=== PATIENT | male | born 1950 | race Caucasian/White ===

== ENCOUNTER → 2017-12-12 | Day surgery (SDC) | payer MEDICARE ==
[~2017-12-12] MED LIST: BUPIVACAINE HCL 0.5 % INJ/PF 30 ML SDV ONE
--- NOTE | 2017-12-12 08:55 | Operative Report ---
PROCEDURE: KNEE RADIOFREQUENCY left under ultrasound guidance Preoperative Diagnosis: Left knee osteoarthritis Postoperative Diagnosis: Left knee osteoarthritis 1. Superolateral genicular branch from the vastus lateralis 2. Superomedial genicular branch from the vastus medialis 3. Inferomedial genicular branch from the saphenous nerve 4. Medial retinacular branch from the vastus intermedius DATE OF PROCEDURE: December 12, 2017 ANESTHESIA: Local anesthesia COMPLICATIONS: None reported PROCEDURE IN DETAIL: Hx/PE/meds/allergies/applicable labs reviewed. No changes and no contraindications were found. Full description of the procedure was provided including benefits as well as possible complications including transient increased pain, stomach irritation, mood alteration, transient weakness or parasthesias as well as more serious nerve injury, bleeding, infection or allergic reaction. Informed consent was obtained and documented. The patient was brought to the procedure room and placed on the exam table in a comfortable supine position. The place for needle placement was obtained by manual palpation with ultrasound confirmation. The sterile field was prepared by chloroprep and sterile drapes. Local anesthesia superficial and deep was provided by local infiltration of 2% lidocaine. A 17g 50 mm radiofrequency introducer needle with a 4 mm active tip was placed overlying the left knee joint and using ultrasound guidance the needle was advanced to a bony endpoint on the superiolateral portion of the femoral condyle of the left knee. A second needle was advanced to a bony endpoint on the superiomedial portion of the femoral condyle. A third needle was then placed over the inferiomedial portion of the tibial condyle until a bony endpoint was met. 4th needle placed 3mm above the patella. Attempted aspiration yielded no blood. Transverse ultrasound views showed all the needles at 50% depth of the femur and tibia. Motor stimulation was tested at 2.0 volts with no leg movement. Images were saved in AP and lateral. A mixture consisting of 0.5% bupivacaine was slowly injected. Then a radiofrequency ablation of each of the geniculate nerves were done at 80 degrees Celsius for 2 minutes and 30 seconds each. The needles were withdrawn. The patient tolerated the procedure well. After observation the patient was discharged with instructions and follow up. They were also provided contact information to call regarding any concerning symptoms or questions. IMPRESSION: 1. Successful geniculate left knee radiofrequency ablation was performed. 2. The patient was given prescription of home medicines. 3. RTC in 1-2 week(s).
== END ==
LOC: RAD 08:35
PROVIDERS: ATTEND Family Medicine
PROC: 3E0T3TZ Introduction of Destructive Agent into Peripheral Nerves and Plexi, Percutaneous Approach (ICD-10-PCS; principal; 2017-12-12)
DX: M17.12 Unilateral primary osteoarthritis, left knee (principal)
CPT/HCPCS: 64640

== ENCOUNTER 2018-07-30 13:03 | Emergency (ER) | payer MEDICARE ==
[2018-07-30 13:10] VITALS: BP 145/88
[2018-07-30] MEDS ORDERED: ONDANSETRON 4 MG TAB.RAPDIS PO ONE (14:02)
[2018-07-30] MEDS ORDERED: NORMAL SALINE 1000 ML 1,000 ML IV ONE (14:02)
[2018-07-30 14:39] LABS: ABSOLUTE EOSINOPHILS # (AUTO) 0.1 10^3/uL (0.0-0.6); ABSOLUTE LYMPHOCYTES (AUTO) 0.9 10^3/uL (0.5-4.7); ABSOLUTE MONOCYTES (AUTO) 0.6 10^3/uL (0.1-1.4); ABSOLUTE NEUT (AUTO) 2.3 10^3/uL (1.7-8.2); BASOPHILS % (AUTO) 0.5 % (0-2); EOSINOPHILS % (AUTO) 1.9 % (0-6); HEMATOCRIT 44.1 % (37.9-51.0); LYMPHOCYTES % (AUTO) 23.3 % (13-45); MEAN CORPUSCULAR VOLUME 89 fl (80-97); MONOCYTES % (AUTO) 15.9 % (3-13); PLATELET COUNT 331 10^3/uL (150-450); RED BLOOD COUNT 4.98 10^6/uL (4.35-5.55); RED CELL DISTRIBUTION WIDTH 13.6 % (11.5-14.0); SEGMENTED NEUTROPHILS % (AUTO) 58.4 % (42-78); TOTAL CELLS COUNTED % (AUTO) 100 %; WHITE BLOOD COUNT 3.9 10^3/uL (4.0-10.5)
--- NOTE | 2018-07-30 14:52 | RADIOLOGY REPORT (SQ) ---
EXAM DESCRIPTION: KUB/ABDOMEN (SINGLE VIEW) COMPLETED DATE/TIME: 07/30/2018 2:37 pm REASON FOR STUDY: Abdominal pain COMPARISON: None. NUMBER OF VIEWS: One view. TECHNIQUE: Supine radiographic image of the abdomen acquired. LIMITATIONS: None. FINDINGS: BOWEL GAS PATTERN: Normal bowel gas pattern. No dilated loops. CALCIFICATIONS: No suspicious calcifications. SOFT TISSUES: No gross mass or suggestion of organomegaly. HARDWARE: None in the abdomen. BONES: Scoliosis. OTHER: No other significant finding. IMPRESSION: NO RADIOGRAPHIC EVIDENCE FOR ACUTE ABDOMINAL DISEASE. TECHNICAL DOCUMENTATION: JOB ID: [id number] [employer]- All Rights Reserved Reading location - IP/workstation name: [email or web address]
[2018-07-30 15:06] LABS: ALANINE AMINOTRANSFERASE 16 U/L (21-72); ALBUMIN 4.2 g/dL (3.5-5.0); ALKALINE PHOSPHATASE 77 U/L (38-126); ANION GAP 14 (5-19); ASPARTATE AMINO TRANSFERASE 26 U/L (17-59); BILIRUBIN,DIRECT 0.4 mg/dL (0.0-0.4); BILIRUBIN,TOTAL 0.6 mg/dL (0.2-1.3); BLOOD UREA NITROGEN 15 mg/dL (7-20); CALCIUM 9.7 mg/dL (8.4-10.2); CARBON DIOXIDE 32 mmol/L (22-30); CHLORIDE 92 mmol/L (98-107); GLUCOSE 102 mg/dL (75-110); SODIUM 137.9 mmol/L (137-145); TOTAL PROTEIN 8.5 g/dL (6.3-8.2)
--- NOTE | 2018-07-30 15:13 | ER Document Report ---
ED General - General Chief Complaint: Numbness Stated Complaint: NAUSEA,NUMBNESS TO BODY Time Seen by Provider: 07/30/18 13:42 Notes: Chief complaint: Paresthesia History of complain:( obtained from----patient) 67 years old male with a history of complete colectomy and J-pouch, not taking B12 vitamin for a long time recently started taking by mouth. Presents today with numbness tingling sensation over throughout the whole body particularly the tip of the fingers and toes and tip of the nose and mouth. Which was very annoying therefore came to the ED. No pain. Denies any fever chills or other constitutional symptoms. Had some nausea and abdominal discomfort no diarrhea or constipation. Onset: As above Duration: Gradual long-standing Severity: Mild to moderate Quality: Tingling sensation Context: Possible B12 deficiency Exacerbating factor and relieving factors: REVIEW OF SYSTEMS: CONSTITUTIONAL : Denies fever, chills, or sweats. Denies recent illness. EENT: Denies eye, ear, throat, or mouth pain or symptoms. Denies nasal or sinus congestion or discharge. Denies throat, tongue, or mouth swelling or difficulty swallowing. CARDIOVASCULAR: Denies chest pain. Denies palpitations or racing or irregular heart beat. Denies ankle edema. RESPIRATORY: Denies cough, cold, or chest congestion. Denies shortness of breath, difficulty breathing, or wheezing. GASTROINTESTINAL: Denies distention. Denies nausea, vomiting, or diarrhea. Denies blood in vomitus, stools, or per rectum. Denies black, tarry stools. Denies constipation. GENITOURINARY: Denies difficulty urinating, painful urination, burning, frequency, blood in urine, or discharge. FEMALE GENITOURINARY: Denies vaginal bleeding, heavy or abnormal periods, irregular periods. Denies vaginal discharge or odor. MUSCULOSKELETAL: Denies back or neck pain or stiffness. Denies joint pain or swelling. SKIN: Denies rash, lesions or sores. HEMATOLOGIC : Denies easy bruising or bleeding. LYMPHATIC: Denies swollen, enlarged glands. NEUROLOGICAL: Denies confusion or altered mental status. Denies passing out or loss of consciousness. Denies dizziness or lightheadedness. Denies headache. Denies weakness or paralysis or loss of use of either side. Denies problems with gait or speech. Denies sensory loss, numbness, or tingling. Denies seizures. PSYCHIATRIC: Denies anxiety or stress. Denies depression, suicidal ideation, or homicidal ideation. ALL OTHER SYSTEMS REVIEWED AND NEGATIVE. PHYSICAL EXAMINATION: GENERAL: Well-appearing, well-nourished and in no acute distress. HEAD: Atraumatic, normocephalic. EYES: Pupils equal round and reactive to light, extraocular movements intact, conjunctiva are normal. ENT: Nares patent, oropharynx clear without exudates. Moist mucous membranes. NECK: Normal range of motion, supple without lymphadenopathy LUNGS: Breath sounds clear to auscultation bilaterally and equal. No wheezes rales or rhonchi. HEART: Regular rate and rhythm without murmurs ABDOMEN: Soft, nontender, nondistended abdomen. No guarding, no rebound. No masses appreciated. Examination of genitals-deferred Musculoskeletal: Normal range of motion, no pitting or edema. No cyanosis. NEUROLOGICAL: Cranial nerves grossly intact. Normal speech, normal gait. Normal sensory, motor exams PSYCH: Normal mood, normal affect. SKIN: Warm, Dry, normal turgor, no rashes or lesions noted. Dictation was performed using [employer] voice recognition software TRAVEL OUTSIDE OF THE [place] IN LAST 30 DAYS: No - HPI Notes: Dictated - Related Data Allergies/Adverse Reactions: No Known Allergies Allergy (Verified 07/30/18 13:04) Past Medical History - Social History Smoking Status: Never Smoker Frequency of alcohol use: None Drug Abuse: None Family History: None, Reviewed & Not Pertinent Patient has suicidal ideation: No Patient has homicidal ideation: No - Past Medical History Cardiac Medical History: Denies: Hx Congestive Heart Failure, Hx DVT, Hx Hypercholesterolemia, Hx Hypertension, Hx Pulmonary Embolism Pulmonary Medical History: Denies: Hx Asthma, Hx COPD Neurological Medical History: Denies: Hx Seizures Endocrine Medical History: Reports: Hx Hypothyroidism. Denies: Hx Diabetes Mellitus Type 1, Hx Diabetes Mellitus Type 2, Hx Hyperthyroidism Renal/ Medical History: Denies: Hx Peritoneal Dialysis GI Medical History: Reports: Hx Ulcer. Denies: Hx Cirrhosis, Hx Gastroesophageal Reflux Disease, Hx Hepatitis Musculoskeletal Medical History: Reports Hx Arthritis Skin Medical History: Denies Hx Eczema, Denies Hx Psoriasis Psychiatric Medical History: Denies: Hx Depression Infectious Medical History: Denies: Hx Hepatitis Past Surgical History: Reports: Hx Abdominal Surgery - J-pouch cecum removed, Hx Orthopedic Surgery - Right hip arthroplasty. Review of Systems - Review of Systems Notes: Dictated Physical Exam - Vital signs Vitals: Temp Pulse Resp BP Pulse Ox 98.9 F 65 16 145/88 H 98 07/30/18 13:09 07/30/18 13:09 07/30/18 13:09 07/30/18 13:09 07/30/18 13:09 - Notes Notes: Dictated Course - Vital Signs Vital signs: Temp Pulse Resp BP Pulse Ox 98.9 F 65 16 145/88 H 98 07/30/18 13:09 07/30/18 13:09 07/30/18 13:09 07/30/18 13:09 07/30/18 13:09 - Laboratory Result Diagrams: 07/30/18 14:20 07/30/18 14:20 Laboratory results interpreted by me: 07/30/18 07/30/18 14:20 14:20 WBC 3.9 L Monocytes % 15.9 H Chloride 92 L Carbon Dioxide 32 H ALT 16 L Total Protein 8.5 H Discharge - Discharge Clinical Impression: Neuropathy, Paresthesia Condition: Fair Disposition: HOME, SELF-CARE Instructions: Neuropathy ([facility]) Referrals: ARABELLA BUNDY DO [Primary Care Provider] - Follow up as needed
[2018-07-30 16:14] LABS: FOLATE > 20.00 ng/mL (>2.76)
== END 2018-07-30 16:32 | disposition home or self-care (01) ==
LOC: ER 13:03
DX: R20.0 Anesthesia of skin (principal); G62.9 Polyneuropathy, unspecified; E03.9 Hypothyroidism, unspecified; Z93.4 Other artificial openings of gastrointestinal tract status
CPT/HCPCS: 99284; 96360; 96361; 36415; 82607; 82746; 85025; 80053; 74018; A9270; J7030; S0119

== ENCOUNTER 2018-08-13 12:31 | Emergency (ER) | payer MEDICARE ==
[2018-08-13] MEDS ORDERED: NORMAL SALINE 1000 ML 1,000 ML IV ONE (12:46)
--- NOTE | 2018-08-13 12:53 | ER Document Report ---
ED Medical Screen (RME) - General Chief Complaint: Rectal Bleeding Stated Complaint: BLOOD IN STOOL Time Seen by Provider: 08/13/18 12:41 Mode of Arrival: Ambulatory Information source: Patient Notes: Patient complained of blood in stool which started this morning. He denies any chest pain or shortness of breath. Patient has had colectomy from ulcerative colitis. I have greeted and performed a rapid initial assessment of this patient. A comprehensive ED assessment and evaluation of the patient, analysis of test results and completion of the medical decision making process will be conducted by additional ED providers. TRAVEL OUTSIDE OF THE [place] IN LAST 30 DAYS: No - Related Data Allergies/Adverse Reactions: No Known Allergies Allergy (Verified 08/13/18 12:37) Past Medical History - Past Medical History Cardiac Medical History: Denies: Hx Congestive Heart Failure, Hx DVT, Hx Hypercholesterolemia, Hx Hypertension, Hx Pulmonary Embolism Pulmonary Medical History: Denies: Hx Asthma, Hx COPD Neurological Medical History: Denies: Hx Seizures Endocrine Medical History: Reports: Hx Hypothyroidism. Denies: Hx Diabetes Mellitus Type 1, Hx Diabetes Mellitus Type 2, Hx Hyperthyroidism Renal/ Medical History: Denies: Hx Peritoneal Dialysis GI Medical History: Reports: Hx Ulcer. Denies: Hx Cirrhosis, Hx Gastroesophageal Reflux Disease, Hx Hepatitis Musculoskeltal Medical History: Reports Hx Arthritis Skin Medical History: Denies Hx Eczema, Denies Hx Psoriasis Psychiatric Medical History: Denies: Hx Depression Infectious Medical History: Denies: Hx Hepatitis Past Surgical History: Reports: Hx Abdominal Surgery - J-pouch cecum removed, Hx Orthopedic Surgery - Right hip arthroplasty. Physical Exam - Vital signs Vitals: Temp Pulse Resp BP Pulse Ox 98.3 F 114 H 18 120/89 H 96 08/13/18 12:37 08/13/18 12:37 08/13/18 12:37 08/13/18 12:37 08/13/18 12:37 Course - Vital Signs Vital signs: Temp Pulse Resp BP Pulse Ox 98.3 F 114 H 18 120/89 H 96 08/13/18 12:37 08/13/18 12:37 08/13/18 12:37 08/13/18 12:37 08/13/18 12:37 Doctor's Discharge - Discharge Referrals: ARABELLA BUNDY DO [Primary Care Provider] - Follow up as needed
[2018-08-13 13:14] LABS: ABSOLUTE EOSINOPHILS # (AUTO) 0.1 10^3/uL (0.0-0.6); ABSOLUTE LYMPHOCYTES (AUTO) 0.7 10^3/uL (0.5-4.7); ABSOLUTE MONOCYTES (AUTO) 0.9 10^3/uL (0.1-1.4); ABSOLUTE NEUT (AUTO) 4.7 10^3/uL (1.7-8.2); BASOPHILS % (AUTO) 0.2 % (0-2); HEMATOCRIT 46.4 % (37.9-51.0); HEMOGLOBIN 15.5 g/dL (13.5-17.0); LYMPHOCYTES % (AUTO) 10.4 % (13-45); MEAN CORPUSCULAR HEMOGLOBIN 29.8 pg (27.0-33.4); MEAN CORPUSCULAR HGB CONC 33.3 g/dL (32.0-36.0); MEAN CORPUSCULAR VOLUME 89 fl (80-97); MONOCYTES % (AUTO) 14.7 % (3-13); PLATELET COUNT 519 10^3/uL (150-450); RED BLOOD COUNT 5.19 10^6/uL (4.35-5.55); RED CELL DISTRIBUTION WIDTH 13.9 % (11.5-14.0); SEGMENTED NEUTROPHILS % (AUTO) 73.7 % (42-78); TOTAL CELLS COUNTED % (AUTO) 100 %; WHITE BLOOD COUNT 6.3 10^3/uL (4.0-10.5)
[2018-08-13 13:25] LABS: INTERNATIONAL RATION (INR) 0.98; PROTHROMBIN TIME 13.4 SEC (11.4-15.4)
[2018-08-13 13:26] LABS: PARTIAL THROMBOPLASTIN TIME 32.6 SEC (23.5-35.8)
[2018-08-13 13:36] LABS: ALANINE AMINOTRANSFERASE 20 U/L (21-72); ALBUMIN 4.2 g/dL (3.5-5.0); ALKALINE PHOSPHATASE 79 U/L (38-126); ANION GAP 10 (5-19); ASPARTATE AMINO TRANSFERASE 25 U/L (17-59); BILIRUBIN,DIRECT 0.4 mg/dL (0.0-0.4); BILIRUBIN,TOTAL 0.6 mg/dL (0.2-1.3); BLOOD UREA NITROGEN 13 mg/dL (7-20); CALCIUM 10.4 mg/dL (8.4-10.2); CARBON DIOXIDE 38 mmol/L (22-30); CHLORIDE 88 mmol/L (98-107); GLUCOSE 130 mg/dL (75-110); POTASSIUM 5.1 mmol/L (3.6-5.0); SODIUM 135.6 mmol/L (137-145); TOTAL PROTEIN 8.1 g/dL (6.3-8.2)
[2018-08-13] MEDS ORDERED: PANTOPRAZOLE SODIUM 40 MG VIAL IV ONE (15:39)
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
[2018-08-13 18:45] VITALS: BP 118/82
== END 2018-08-13 17:44 | disposition home or self-care (01) ==
LOC: ER 12:31
DX: K62.5 Hemorrhage of anus and rectum (principal)
CPT/HCPCS: 99283; 36415; 85025; 85610; 85730; 80053; C9113; S0164

== ENCOUNTER 2020-04-22 02:19 | Inpatient (IN) | payer MEDICARE ==
[2020-04-22] MEDS ORDERED: NORMAL SALINE 250 ML IV PRN ×2 (02:48)
[2020-04-22] MEDS ORDERED: NORMAL SALINE 1000 ML 1,000 ML IV ONE (02:49)
[2020-04-22] MEDS ORDERED: NORMAL SALINE 500 ML IV ONE (02:53)
--- NOTE | 2020-04-22 02:53 | ER Document Report ---
ED GI/ - General Chief Complaint: Rectal Bleeding Stated Complaint: RECTAL BLEEDING Time Seen by Provider: 04/22/20 02:41 Notes: Patient is a 69-year-old male that comes emergency department for chief complaint of rectal bleeding. He states it started yesterday morning, he states that he had a larger one during the evening when he started become lightheaded and weak. He had 4 total bright bloody stools. He states he has a history of colectomy secondary to ulcerative colitis, he states he has had a GI bleed once before that required transfusion a couple of years ago ([id number]). He is not on blood thinner. He denies any symptoms otherwise including chest pain, abdominal pain, vomiting, fever. TRAVEL OUTSIDE OF THE [place] IN LAST 30 DAYS: No - Related Data Allergies/Adverse Reactions: No Known Allergies Allergy (Verified 08/13/18 12:37) Past Medical History - General Information source: Patient - Social History Smoking Status: Never Smoker Frequency of alcohol use: None Drug Abuse: None Lives with: Family Family History: None, Reviewed & Not Pertinent Patient has homicidal ideation: No - Past Medical History Cardiac Medical History: Denies: Hx Congestive Heart Failure, Hx DVT, Hx Hypercholesterolemia, Hx Hypertension, Hx Pulmonary Embolism Pulmonary Medical History: Denies: Hx Asthma, Hx COPD Neurological Medical History: Denies: Hx Seizures Endocrine Medical History: Reports: Hx Hypothyroidism. Denies: Hx Diabetes Mellitus Type 1, Hx Diabetes Mellitus Type 2, Hx Hyperthyroidism Renal/ Medical History: Denies: Hx Peritoneal Dialysis GI Medical History: Reports: Hx Gastroesophageal Reflux Disease, Hx Ulcerative Colitis. Denies: Hx Cirrhosis, Hx Hepatitis Musculoskeletal Medical History: Reports Hx Arthritis Skin Medical History: Denies Hx Eczema, Denies Hx Psoriasis Psychiatric Medical History: Denies: Hx Depression Infectious Medical History: Denies: Hx Hepatitis Past Surgical History: Reports: Hx Abdominal Surgery - J-pouch, colectomy, Hx Orthopedic Surgery - Right hip arthroplasty. - Immunizations Immunizations up to date: Yes Hx Diphtheria, Pertussis, Tetanus Vaccination: Yes Review of Systems - Review of Systems Constitutional: See HPI EENT: No symptoms reported Cardiovascular: See HPI Respiratory: No symptoms reported Gastrointestinal: See HPI Genitourinary: No symptoms reported Male Genitourinary: No symptoms reported Musculoskeletal: No symptoms reported Skin: No symptoms reported Hematologic/Lymphatic: No symptoms reported Neurological/Psychological: No symptoms reported Physical Exam - Vital signs Vitals: Temp Resp Pulse Ox 98.0 F 23 H 98 04/22/20 02:32 04/22/20 02:32 04/22/20 02:32 - Notes Notes: GENERAL: Alert, interactive, somewhat pale but does not appear to be in distress HEAD: Normocephalic, atraumatic. EYES: Pupils equal, round, and reactive to light. Extraocular movements intact. ENT: Oral mucosa moist, tongue midline. Oropharynx unremarkable. Airway patent. NECK: Full range of motion. Supple. Trachea midline. No lymphadenopathy. LUNGS: Clear to auscultation bilaterally, no wheezes, rales, or rhonchi. No respiratory distress. Non-tender chest wall. HEART: Regular rate and rhythm. No murmur ABDOMEN: No overt tenderness noted on palpation of the abdomen, no rigidity or guarding. Midline abdominal scars noted. Bowel sounds are present. RECTAL: There is small amount of bright red blood in the rectum, there appear to be scars just inside the rectal vault and narrowing of the rectal vault. No severe tenderness on exam however. No other concerning findings noted. Exam performed with Mildred LARRY at bedside. EXTREMITIES: Moves all 4 extremities spontaneously. No edema, normal radial and dorsalis pedis pulses bilaterally. No cyanosis. BACK: no cervical, thoracic, lumbar midline tenderness. No saddle anesthesia, normal distal neurovascular exam. Moves all extremities in full range of motion. NEUROLOGICAL: Alert and oriented x3. Normal speech. Cranial nerves II through XII grossly intact. Strength 5/5 in all extremities. PSYCH: Normal affect, normal mood. SKIN: Pale Course - Re-evaluation Re-evalutation: 04/22/20 02:51 Blood pressure is 91 systolic, patient is pale but alert, patient is no current symptoms while in the bed. Rectal exam does show some bright red blood but he was not hemorrhaging on my exam. Abdomen is soft and benign. Patient is not on blood thinner. Work-up pending, blood transfusion will be ordered, giving IV fluids now because of hypotension. After 500 cc bolus blood pressure again in the 100s systolic. On reevaluation patient with no symptoms except occasional nausea, this was treated. Patient appears improved on reevaluation. Patient has not had any additional bowel movement since earlier this evening. CBC is actually reassuring with hemoglobin of 11 although previous one in 2018 was 15.5. Remaining work-up nonspecific. BUN is not elevated, based on this and overall presentation I do not suspect an upper GI bleed. Patient states he is a patient of Dr. Dillon, gastroenterology. He states that he requires pediatric sized equipment for colonoscopy because of scar tissue. I did call and speak with Dr. 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 He recommends admission, Cipro and Flagyl by the admitting provider, and he can consult on the patient. Patient states understanding and agreement. Discussed with Dr. Ojeda, hospitalist, patient admitted to telemetry full admission. - Vital Signs Vital signs: Temp Pulse Resp BP Pulse Ox 98.0 F 22 H 98/64 L 96 04/22/20 02:32 04/22/20 03:01 04/22/20 03:00 04/22/20 03:01 - Laboratory Result Diagrams: 04/22/20 02:39 04/22/20 02:39 Laboratory results interpreted by me: 04/22/20 04/22/20 04/22/20 02:39 02:39 02:39 RBC 3.87 L Hgb 11.3 L Hct 33.5 L RDW 15.2 H Sodium 132.9 L Chloride 97 L Glucose 167 H Total Protein 6.0 L Albumin 3.1 L Crossmatch See Detail Discharge - Discharge Clinical Impression: Lower GI bleed, Nausea Condition: Stable Disposition: ADMITTED INPATIENT Admitting Provider: Rusty (Hospitalist) Unit Admitted: Telemetry
[2020-04-22 03:05] LABS: ABSOLUTE EOSINOPHILS # (AUTO) 0.2 10^3/uL (0.0-0.6); ABSOLUTE MONOCYTES (AUTO) 1.1 10^3/uL (0.1-1.4); ABSOLUTE NEUT (AUTO) 7.1 10^3/uL (1.7-8.2); BASOPHILS % (AUTO) 0.4 % (0-2); EOSINOPHILS % (AUTO) 1.5 % (0-6); HEMATOCRIT 33.5 % (37.9-51.0); HEMOGLOBIN 11.3 g/dL (13.5-17.0); LYMPHOCYTES % (AUTO) 19.3 % (13-45); MEAN CORPUSCULAR HEMOGLOBIN 29.3 pg (27.0-33.4); MEAN CORPUSCULAR HGB CONC 33.8 g/dL (32.0-36.0); MEAN CORPUSCULAR VOLUME 87 fl (80-97); MONOCYTES % (AUTO) 10.2 % (3-13); PLATELET COUNT 405 10^3/uL (150-450); RED BLOOD COUNT 3.87 10^6/uL (4.35-5.55); RED CELL DISTRIBUTION WIDTH 15.2 % (11.5-14.0); SEGMENTED NEUTROPHILS % (AUTO) 68.6 % (42-78); TOTAL CELLS COUNTED % (AUTO) 100 %; WHITE BLOOD COUNT 10.4 10^3/uL (4.0-10.5)
[2020-04-22] MEDS ORDERED: ONDANSETRON HCL INJ/PF 4 MG/2 ML SDV IV ONE (03:11)
[2020-04-22 03:20] LABS: ALBUMIN 3.1 g/dL (3.5-5.0); ALKALINE PHOSPHATASE 65 U/L (38-126); ANION GAP 6 (5-19); ASPARTATE AMINO TRANSFERASE 18 U/L (17-59); BILIRUBIN,TOTAL 0.4 mg/dL (0.2-1.3); BLOOD UREA NITROGEN 15 mg/dL (7-20); CALCIUM 9.2 mg/dL (8.4-10.2); CARBON DIOXIDE 30 mmol/L (22-30); CHLORIDE 97 mmol/L (98-107); GLUCOSE 167 mg/dL (75-110)
[2020-04-22 03:43] LABS: INTERNATIONAL RATION (INR) 1.02; PROTHROMBIN TIME 13.4 SEC (11.4-15.4)
[2020-04-22 03:44] LABS: PARTIAL THROMBOPLASTIN TIME 32.9 SEC (23.5-35.8)
[2020-04-22] MEDS ORDERED: ACETAMINOPHEN 325 MG TABLET PO PRN (04:36)
[2020-04-22] MEDS ORDERED: MAG HYDROX/AL HYDROX/SIMETH SUSP 30 ML UDCUP PO PRN (04:36)
[2020-04-22] MEDS ORDERED: ONDANSETRON HCL INJ/PF 4 MG/2 ML SDV IV PRN (04:36)
[2020-04-22] MEDS ORDERED: CIPROFLOXACIN 400 MG/D5W RTU 400 MG/200 ML RTUPB IV ONE (05:00)
[2020-04-22] MEDS ORDERED: HEPARIN SOD (PORCINE) 5,000 UNIT/ML 1 ML VIAL SUBCUT SCH (06:00)
[2020-04-22] MEDS: METRONIDAZOLE 500 MG/NS RTU 500 MG/100 ML RTUPB IV SCH ×2 (06:14→12:24)
--- NOTE | 2020-04-22 06:16 | PDOC H&P ---
History of Present Illness Admission Date/PCP: 04/22/20 04:45 CADY MASSEY Patient complains of: Bright red blood per rectum History of Present Illness: GREGORIA POPE is a 69 year old male with a past medical history of hypothyroidism, ulcerative colitis, status post total colectomy complicated by medication noncompliance and recurrence of pouchitis. Patient needs to at least 3 bowel movements of bright red blood. Unable to quantify. In the emergency department is found to have a mildly reduced hemoglobin is referred to the hospitalist for admission. Patient admits remote discontinuation of maintenance medication for ulcerative colitis. He denies additional medication use, heat or cold intolerance, nausea vomiting or diarrhea. He is concerned for a recent 20 pound weight loss. Past Medical History Cardiac Medical History: Denies: Congestive Heart Failure, DVT, Hyperlipidema, Hypertension, Pulmonary Embolism Pulmonary Medical History: Denies: Asthma, Chronic Obstructive Pulmonary Disease (COPD) Neurological Medical History: Denies: Seizures Endocrine Medical History: Reports: Hypothyroidism Denies: Diabetes Mellitus Type 1, Diabetes Mellitus Type 2, Hyperthyroidism GI Medical History: Reports: Gastroesophageal Reflux Disease, Ulcerative Colitis Denies: Cirrhosis, Hepatitis Musculoskeltal Medical History: Reports: Arthritis Skin Medical History: Denies: Eczema, Psoriasis Psychiatric Medical History: Denies: Depression Past Surgical History Past Surgical History: Reports: Orthopedic Surgery - Right hip arthroplasty., Other - Total colectomy Social History Information Source: [facility] Records Lives with: Family Smoking Status: Never Smoker Frequency of Alcohol Use: None Drugs: None - Advance Directive Resuscitation Status: Full Code Family History Family History: None, Hypertension. denies: Malignancy Parental Family History Reviewed: Yes Children Family History Reviewed: Yes Sibling(s) Family History Reviewed.: Yes Medication/Allergy Home Medications: Levothyroxine Sodium [Unithroid] 150 mcg PO DAILY 09/23/16 Minocycline HCl [Minocin] 50 mg PO DAILY 09/23/16 Tramadol HCl [Ultram 50 mg Tablet] 50 mg PO Q6HP PRN 09/23/16 Esomeprazole Magnesium [Nexium] 40 mg PO BID #28 capsule. 09/24/16 Allergies/Adverse Reactions: No Known Allergies Allergy (Verified 08/13/18 12:37) Review of Systems ROS unobtainable: Other - 20 pound weight loss in the last 12 months Constitutional: ABSENT: chills, fever(s), headache(s), weight gain, weight loss Eyes: ABSENT: visual disturbances Ears: ABSENT: hearing changes Cardiovascular: ABSENT: chest pain, dyspnea on exertion, edema, orthropnea, palpitations Respiratory: ABSENT: cough, hemoptysis Gastrointestinal: ABSENT: abdominal pain, constipation, diarrhea, hematemesis, hematochezia, nausea, vomiting Genitourinary: ABSENT: dysuria, hematuria Musculoskeletal: ABSENT: joint swelling Integumentary: ABSENT: rash, wounds Neurological: ABSENT: abnormal gait, abnormal speech, confusion, dizziness, focal weakness, syncope Psychiatric: ABSENT: anxiety, depression, homidical ideation, suicidal ideation Endocrine: ABSENT: cold intolerance, heat intolerance, polydipsia, polyuria Hematologic/Lymphatic: ABSENT: easy bleeding, easy bruising Physical Exam Vital Signs: Temp Pulse Resp BP Pulse Ox 98.0 F 22 H 98/64 L 96 04/22/20 02:32 04/22/20 03:01 04/22/20 03:00 04/22/20 03:01 Intake & Output 04/20/20 04/21/20 04/22/20 11:59 11:59 11:59 Weight 62.9 kg General appearance: PRESENT: no acute distress, cooperative, well-developed, well-nourished Head exam: PRESENT: atraumatic, normocephalic Eye exam: PRESENT: conjunctiva pink, EOMI, PERRLA. ABSENT: scleral icterus Ear exam: PRESENT: normal external ear exam Mouth exam: PRESENT: moist, tongue midline Neck exam: ABSENT: carotid bruit, JVD, lymphadenopathy, thyromegaly Respiratory exam: PRESENT: clear to auscultation madhu. ABSENT: rales, rhonchi, wheezes Cardiovascular exam: PRESENT: RRR. ABSENT: diastolic murmur, rubs, systolic murmur Pulses: PRESENT: normal dorsalis pedis pul Vascular exam: PRESENT: normal capillary refill GI/Abdominal exam: PRESENT: hyperactive bowel sounds, normal bowel sounds, soft, tenderness - Without guarding. ABSENT: distended, guarding, mass, organolmegaly, rebound Rectal exam: PRESENT: deferred Extremities exam: PRESENT: full ROM. ABSENT: calf tenderness, clubbing, pedal edema Neurological exam: PRESENT: alert, awake, oriented to person, oriented to place, oriented to time, oriented to situation, CN II-XII grossly intact. ABSENT: motor sensory deficit Psychiatric exam: PRESENT: appropriate affect, normal mood. ABSENT: homicidal ideation, suicidal ideation Skin exam: PRESENT: dry, intact, warm. ABSENT: cyanosis, rash Results Laboratory Results: 04/22/20 02:39 04/22/20 02:39 04/22/20 04/22/20 04/22/20 02:39 02:39 02:39 WBC 10.4 RBC 3.87 L Hgb 11.3 L Hct 33.5 L MCV 87 MCH 29.3 MCHC 33.8 RDW 15.2 H Plt Count 405 Seg Neutrophils % 68.6 Sodium 132.9 L Potassium 4.0 Chloride 97 L Carbon Dioxide 30 Anion Gap 6 BUN 15 Creatinine 0.92 Est GFR ( Amer) > 60 Glucose 167 H Calcium 9.2 Total Bilirubin 0.4 AST 18 Alkaline Phosphatase 65 Total Protein 6.0 L Albumin 3.1 L Blood Type O POSITIVE Antibody Screen NEGATIVE Assessment and Plan - Diagnosis (1) Ulcerative colitis with rectal bleeding Is this a current diagnosis for this admission?: Yes Plan: Status post colectomy, likely secondary to pouchitis, Flagyl, ciprofloxacin, clear liquids, follow-up CBC, ESR and consult from patient's counter cutter Dr. Dillon. (2) Anemia Is this a current diagnosis for this admission?: Yes Plan: Likely multifactorial secondary to acute hemorrhage and chronic iron deficiency. Follow-up anemia studies. Transfuse hemoglobin as needed less than 7. (3) Hyperglycemia Is this a current diagnosis for this admission?: Yes Plan: Hyperglycemia with recent weight loss and hypothyroidism concerning for possible undiagnosed diabetes. Follow-up A1c (4) Weight loss Is this a current diagnosis for this admission?: Yes Plan: Patient describes 20 pound weight loss in the last 12 months. Follow-up endoscopy, TSH and A1c. (5) Hypothyroid Qualifiers: Is this a current diagnosis for this admission?: Yes Plan: On Synthroid complicated by recent weight loss, follow-up TSH.
[2020-04-22 06:29] LABS: IRON(TIBC) 55.6 ug/dL (49-181)
[2020-04-22 07:16] LABS: ABSOLUTE LYMPHOCYTES (AUTO) 0.8 10^3/uL (0.5-4.7); ABSOLUTE MONOCYTES (AUTO) 0.5 10^3/uL (0.1-1.4); ABSOLUTE NEUT (AUTO) 6.8 10^3/uL (1.7-8.2); BASOPHILS % (AUTO) 0.2 % (0-2); EOSINOPHILS % (AUTO) 0.4 % (0-6); HEMATOCRIT 31.1 % (37.9-51.0); HEMOGLOBIN 10.4 g/dL (13.5-17.0); LYMPHOCYTES % (AUTO) 9.3 % (13-45); MEAN CORPUSCULAR HGB CONC 33.4 g/dL (32.0-36.0); MEAN CORPUSCULAR VOLUME 87 fl (80-97); MONOCYTES % (AUTO) 6.5 % (3-13); PLATELET COUNT 296 10^3/uL (150-450); RED BLOOD COUNT 3.58 10^6/uL (4.35-5.55); RED CELL DISTRIBUTION WIDTH 15.4 % (11.5-14.0); SEGMENTED NEUTROPHILS % (AUTO) 83.6 % (42-78); TOTAL CELLS COUNTED % (AUTO) 100 %; WHITE BLOOD COUNT 8.2 10^3/uL (4.0-10.5)
[2020-04-22 07:22] LABS: ABSOLUTE RETICS # 0.061 10^6/uL (0.028-0.122)
[2020-04-22 07:45] LABS: FOLATE > 20.00 ng/mL (>2.76)
--- NOTE | 2020-04-22 08:00 | EKG REPORT ---
SEVERITY:- ABNORMAL ECG - SINUS RHYTHM RBBB AND LAFB : Confirmed by: Mena Walls MD 22-Apr-2020 07:59:38
[2020-04-22 08:41] LABS: APPEARANCE,URINE SLIGHTLY-CLOUDY; BILIRUBIN,URINE NEGATIVE (NEGATIVE); COLOR,URINE YELLOW; GLUCOSE, URINE NEGATIVE (NEGATIVE); KETONES,URINE NEGATIVE (NEGATIVE); LEUKOCYTE ESTERASE,URINE NEGATIVE (NEGATIVE); NITRITE,URINE NEGATIVE (NEGATIVE); PROTEIN,URINE NEGATIVE (NEGATIVE); URINE SPECIFIC GRAVITY 1.016; UROBILINOGEN,URINE NEGATIVE mg/dL (<2.0)
[2020-04-22 12:13] LABS: ABSOLUTE EOSINOPHILS # (AUTO) 0.1 10^3/uL (0.0-0.6); ABSOLUTE MONOCYTES (AUTO) 0.7 10^3/uL (0.1-1.4); ABSOLUTE NEUT (AUTO) 4.1 10^3/uL (1.7-8.2); BASOPHILS % (AUTO) 0.3 % (0-2); EOSINOPHILS % (AUTO) 1.1 % (0-6); HEMATOCRIT 29.3 % (37.9-51.0); HEMOGLOBIN 9.9 g/dL (13.5-17.0); LYMPHOCYTES % (AUTO) 16.4 % (13-45); MEAN CORPUSCULAR HEMOGLOBIN 29.2 pg (27.0-33.4); MEAN CORPUSCULAR HGB CONC 33.7 g/dL (32.0-36.0); MEAN CORPUSCULAR VOLUME 87 fl (80-97); MONOCYTES % (AUTO) 11.4 % (3-13); PLATELET COUNT 317 10^3/uL (150-450); RED BLOOD COUNT 3.37 10^6/uL (4.35-5.55); RED CELL DISTRIBUTION WIDTH 15.3 % (11.5-14.0); SEGMENTED NEUTROPHILS % (AUTO) 70.8 % (42-78); TOTAL CELLS COUNTED % (AUTO) 100 %; WHITE BLOOD COUNT 5.8 10^3/uL (4.0-10.5)
[2020-04-22] MEDS ORDERED: EPINEPHRINE INJ 1 MG/10 ML DISP.SYRIN ONE (16:10)
--- NOTE | 2020-04-22 16:33 | PDOC CONSULTATION ---
Consultation Consult Date: 04/22/20 Provider Consulted: SOWMYA BUSTILLO History of Present Illness Admission Date/PCP: 04/22/20 04:45 CADY MASSEY History of Present Illness: GREGORIA POPE is a 69 year old male Patient who was admitted through the emergency room last night with rectal bleeding. He started bleeding about 24 hours ago but had 3 episodes of large bright red blood per rectum prior to presentation. He denies any rectal pain but has some mild abdominal discomfort. He has a history of pouchitis following his total colectomy with J-pouch performed in 2000. He has had multiple episodes of bleeding in the past but the last one was in 2018 when he was admitted to [facility]. He typically moves his bowels 4-5 times a day but it has become slightly more frequent in the last few weeks going about 6-7 times a day. On admission his hemoglobin was 11.3 while it was 13.2 back in January of this year. It was 15 in August 2018. His BUN and creatinine were normal on admission. TSH was very high at 20. Past Medical History Cardiac Medical History: Denies: Congestive Heart Failure, DVT, Hyperlipidema, Hypertension, Pulmonary Embolism Pulmonary Medical History: Denies: Asthma, Chronic Obstructive Pulmonary Disease (COPD) Neurological Medical History: Denies: Seizures Endocrine Medical History: Reports: Hypothyroidism Denies: Diabetes Mellitus Type 1, Diabetes Mellitus Type 2, Hyperthyroidism GI Medical History: Reports: Gastroesophageal Reflux Disease, Ulcerative Colitis Denies: Cirrhosis, Hepatitis Musculoskeltal Medical History: Reports: Arthritis Skin Medical History: Denies: Eczema, Psoriasis Psychiatric Medical History: Denies: Depression Past Surgical History Past Surgical History: Reports: Orthopedic Surgery - Right hip arthroplasty., Other - Total colectomy Social History Lives with: Family Smoking Status: Never Smoker Electronic Cigarette use?: No Frequency of Alcohol Use: None Hx Recreational Drug Use: No Drugs: None Hx Prescription Drug Abuse: No - Advance Directive Resuscitation Status: Full Code Family History Family History: None, Hypertension. denies: Malignancy Parental Family History Reviewed: No Children Family History Reviewed: NA Sibling(s) Family History Reviewed.: NA Medication/Allergy Home Medications: Levothyroxine Sodium [Unithroid] 150 mcg PO DAILY 09/23/16 Ascorbic Acid [Vitamin C 500 mg Tablet] 500 mg PO DAILY 04/22/20 Bifidobacterium Infantis [Align] 10.5 mg PO DAILY 04/22/20 Cholecalciferol (Vitamin D3) [Vitamin D3 1000 Unit Tablet] 1,000 unit PO DAILY 04/22/20 Cyanocobalamin (Vitamin B-12) [Vitamin B-12] 1,000 mcg PO DAILY 04/22/20 Multivitamin [Tab-A-Carla (Multiple Vitamin) Tablet] 1 tab PO DAILY 04/22/20 Allergies/Adverse Reactions: No Known Allergies Allergy (Verified 08/13/18 12:37) Review of Systems All systems: reviewed and no additional remarkable complaints except as stated Physical Exam Vital Signs: Temp Pulse Resp BP Pulse Ox 98.7 F 90 17 90/54 L 100 04/22/20 15:18 04/22/20 15:18 04/22/20 15:18 04/22/20 15:18 04/22/20 15:18 Intake & Output 04/21/20 04/22/20 04/23/20 06:59 06:59 06:59 Intake Total 500 1260 Output Total 1000 Balance 500 260 Weight 62.9 kg 61.4 kg Exam: General: Patient is alert and looks well. HEENT: There is some pallor but no jaundice. PERRLA. Oropharynx normal Respiratory: No chest deformity. No respiratory distress. Chest wall palpitation was unremarkable. Breath sounds were normal Cardiovascular: Heart sounds 1 and 2 normal with no murmurs. Abdominal: Not distended. Soft and nontender. Liver and spleen not palpable. No ascites demonstrated. Bowel sounds active. Rectal examination was deferred. Extremities: No edema Neurological: Alert and oriented x4. Grossly nonfocal. Normal speech Skin: No significant rash Psychological: Normal affect Results Laboratory Results: 04/22/20 11:27 04/22/20 02:39 04/22/20 04/22/20 04/22/20 02:29 02:29 02:39 WBC 10.4 RBC 3.87 L Hgb 11.3 L Hct 33.5 L MCV 87 MCH 29.3 MCHC 33.8 RDW 15.2 H Plt Count 405 Seg Neutrophils % 68.6 Retic Count (auto) Sodium Potassium Chloride Carbon Dioxide Anion Gap BUN Creatinine Est GFR ( Amer) Glucose Calcium Iron 55.6 TIBC 325 % Saturation 17 Transferrin 238.80 Ferritin 70.20 Total Bilirubin AST Alkaline Phosphatase Total Protein Albumin Vitamin B12 712.0 Folate > 20.00 TSH Urine Color Urine Appearance Urine pH Ur Specific [place] Urine Protein Urine Glucose (UA) Urine Ketones Urine Blood Urine Nitrite Ur Leukocyte Esterase Urine WBC (Auto) Urine RBC (Auto) Blood Type Antibody Screen 04/22/20 04/22/20 04/22/20 02:39 02:39 02:39 WBC RBC Hgb Hct MCV MCH MCHC RDW Plt Count Seg Neutrophils % Retic Count (auto) Sodium 132.9 L Potassium 4.0 Chloride 97 L Carbon Dioxide 30 Anion Gap 6 BUN 15 Creatinine 0.92 Est GFR ( Amer) > 60 Glucose 167 H Calcium 9.2 Iron TIBC % Saturation Transferrin Ferritin Total Bilirubin 0.4 AST 18 Alkaline Phosphatase 65 Total Protein 6.0 L Albumin 3.1 L Vitamin B12 Folate TSH 20.10 H Urine Color Urine Appearance Urine pH Ur Specific [place] Urine Protein Urine Glucose (UA) Urine Ketones Urine Blood Urine Nitrite Ur Leukocyte Esterase Urine WBC (Auto) Urine RBC (Auto) Blood Type O POSITIVE Antibody Screen NEGATIVE 04/22/20 04/22/20 04/22/20 07:02 07:02 08:15 WBC 8.2 RBC 3.58 L Hgb 10.4 L Hct 31.1 L MCV 87 MCH 29.0 MCHC 33.4 RDW 15.4 H Plt Count 296 Seg Neutrophils % 83.6 H Retic Count (auto) 1.70 Sodium Potassium Chloride Carbon Dioxide Anion Gap BUN Creatinine Est GFR ( Amer) Glucose Calcium Iron TIBC % Saturation Transferrin Ferritin Total Bilirubin AST Alkaline Phosphatase Total Protein Albumin Vitamin B12 Folate TSH Urine Color YELLOW Urine Appearance SLIGHTLY-CLOUDY Urine pH 5.0 Ur Specific [place] 1.016 Urine Protein NEGATIVE Urine Glucose (UA) NEGATIVE Urine Ketones NEGATIVE Urine Blood NEGATIVE Urine Nitrite NEGATIVE Ur Leukocyte Esterase NEGATIVE Urine WBC (Auto) 2 Urine RBC (Auto) 1 Blood Type Antibody Screen 04/22/20 11:27 WBC 5.8 RBC 3.37 L Hgb 9.9 L Hct 29.3 L MCV 87 MCH 29.2 MCHC 33.7 RDW 15.3 H Plt Count 317 Seg Neutrophils % 70.8 Retic Count (auto) Sodium Potassium Chloride Carbon Dioxide Anion Gap BUN Creatinine Est GFR ( Amer) Glucose Calcium Iron TIBC % Saturation Transferrin Ferritin Total Bilirubin AST Alkaline Phosphatase Total Protein Albumin Vitamin B12 Folate TSH Urine Color Urine Appearance Urine pH Ur Specific [place] Urine Protein Urine Glucose (UA) Urine Ketones Urine Blood Urine Nitrite Ur Leukocyte Esterase Urine WBC (Auto) Urine RBC (Auto) Blood Type Antibody Screen Assessment & Plan - Diagnosis (1) Lower GI bleed Is this a current diagnosis for this admission?: Yes Plan: I believe he is bleeding from ulcers in his pouch or small bowel. His latest hemoglobin was 9 while he was 13 in January. He will be receiving 1 unit of blood. He was started on Cipro and Flagyl and I will perform a pouchoscopy with bleeding control if possible. He will be discharged on Cipro for total of 14 days. He may also benefit from a probiotic VSL #3 though he had problems affording this in the past (2) Pouchitis Is this a current diagnosis for this admission?: Yes (3) Anemia Qualifiers: Other causes of anemia: acute posthemorrhagic Is this a current diagnosis for this admission?: Yes
--- NOTE | 2020-04-22 17:08 | Operative Report ---
Operative Report DATE OF SURGERY: 04/22/20 Operative Report: Pre-op diagnosis: Rectal bleeding Post-op diagnosis: 1. Normal distal 7 to 10 cm pouch 2. Multiple ulceration in the ileum up to 60 cm Surgery: Pouchoscopy and ileoscopy with biopsy Medications: None Tissue removed: Ileal biopsy Procedure: After informed consent obtained from patient, conscious sedation was achieved. A digital rectal examination was performed and this showed some stenosis of the anus. The upper endoscope was then inserted into the pouch which revealed a relatively normal mucosa in the false 7 to 10 cm. There was marked ulceration from about 10 cm up to 25 cm and then scattered ulceration up to 60 cm. The ileum was normal beyond this. No evidence for recent bleeding was noted and there was brown stool in the pouch. Biopsies were taken from the ulcers. Patient tolerated the procedure well. Findings As above Plan: Continue Cipro 500 mg twice a day for 14 days. He will be started on Pentasa while in the hospital and I will send a prescription to his pharmacy. He was advised to use water or baby wipes after bowel movement to help with the perianal irritation. OPERATION: .
[2020-04-22] MEDS ORDERED: CIPROFLOXACIN 400 MG/D5W RTU 400 MG/200 ML RTUPB IV SCH (18:00)
[2020-04-22] MEDS: MESALAMINE 250 MG CAPSULE.SA PO SCH (18:16)
[2020-04-22] MEDS: CIPROFLOXACIN HCL 500 MG TABLET PO SCH (21:11)
[2020-04-22] MEDS ORDERED: LEVOTHYROXINE SODIUM 0.15 MG TABLET PO ONE (23:00)
[2020-04-22 23:26] LABS: ABSOLUTE EOSINOPHILS # (AUTO) 0.2 10^3/uL (0.0-0.6); ABSOLUTE LYMPHOCYTES (AUTO) 1.3 10^3/uL (0.5-4.7); ABSOLUTE MONOCYTES (AUTO) 0.6 10^3/uL (0.1-1.4); ABSOLUTE NEUT (AUTO) 1.7 10^3/uL (1.7-8.2); BASOPHILS % (AUTO) 0.5 % (0-2); EOSINOPHILS % (AUTO) 4.2 % (0-6); HEMATOCRIT 28.2 % (37.9-51.0); HEMOGLOBIN 9.7 g/dL (13.5-17.0); LYMPHOCYTES % (AUTO) 34.3 % (13-45); MEAN CORPUSCULAR HEMOGLOBIN 29.6 pg (27.0-33.4); MEAN CORPUSCULAR HGB CONC 34.4 g/dL (32.0-36.0); MEAN CORPUSCULAR VOLUME 86 fl (80-97); PLATELET COUNT 257 10^3/uL (150-450); RED BLOOD COUNT 3.29 10^6/uL (4.35-5.55); RED CELL DISTRIBUTION WIDTH 14.7 % (11.5-14.0); TOTAL CELLS COUNTED % (AUTO) 100 %; WHITE BLOOD COUNT 3.8 10^3/uL (4.0-10.5)
[2020-04-23] MEDS ORDERED: LEVOTHYROXINE SODIUM 0.15 MG TABLET PO SCH (06:00)
[2020-04-23 06:53] LABS: BLOOD UREA NITROGEN 9 mg/dL (7-20); CALCIUM 8.5 mg/dL (8.4-10.2); CARBON DIOXIDE 31 mmol/L (22-30); CHLORIDE 101 mmol/L (98-107); GLUCOSE 80 mg/dL (75-110); POTASSIUM 4.1 mmol/L (3.6-5.0)
[2020-04-23 06:57] LABS: ANION GAP 1 (5-19)
[2020-04-23 07:37] LABS: HEMATOCRIT 29.3 % (37.9-51.0); HEMOGLOBIN 9.8 g/dL (13.5-17.0); MEAN CORPUSCULAR HEMOGLOBIN 29.1 pg (27.0-33.4); MEAN CORPUSCULAR HGB CONC 33.6 g/dL (32.0-36.0); MEAN CORPUSCULAR VOLUME 87 fl (80-97); PLATELET COUNT 266 10^3/uL (150-450); RED BLOOD COUNT 3.37 10^6/uL (4.35-5.55); WHITE BLOOD COUNT 3.4 10^3/uL (4.0-10.5)
[2020-04-23] MEDS ORDERED: LACTOBACILLUS ACIDOPHILUS 250 MG TAB PO SCH (10:00)
[2020-04-23] MEDS: CIPROFLOXACIN HCL 500 MG TABLET PO SCH (10:15)
[2020-04-23] MEDS: MESALAMINE 250 MG CAPSULE.SA PO SCH ×2 (10:15→13:29)
[2020-04-23 13:48] LABS: HEMATOCRIT 29.4 % (37.9-51.0); HEMOGLOBIN 10.1 g/dL (13.5-17.0); MEAN CORPUSCULAR HEMOGLOBIN 29.6 pg (27.0-33.4); MEAN CORPUSCULAR HGB CONC 34.3 g/dL (32.0-36.0); MEAN CORPUSCULAR VOLUME 87 fl (80-97); PLATELET COUNT 289 10^3/uL (150-450); RED CELL DISTRIBUTION WIDTH 14.9 % (11.5-14.0); WHITE BLOOD COUNT 3.5 10^3/uL (4.0-10.5)
[2020-04-23 15:05] VITALS: BP 98/52
[2020-04-24] MEDS ORDERED: LEVOTHYROXINE SODIUM 0.15 MG TABLET PO SCH (06:00)
--- NOTE | 2020-04-24 17:14 | PDOC DISCHARGE SUMMARY ---
Impression - Admit/DC Date/PCP Admission Date/Primary Care Provider: 04/22/20 04:45 CADY MASSEY Discharge Date: 04/23/20 - Discharge Diagnosis (1) Anemia Is this a current diagnosis for this admission?: Yes (2) Hyperglycemia Is this a current diagnosis for this admission?: Yes (3) Ulcerative colitis with rectal bleeding Is this a current diagnosis for this admission?: Yes (4) Weight loss Is this a current diagnosis for this admission?: Yes (5) Hypothyroid Is this a current diagnosis for this admission?: Yes - Additional Information Resuscitation Status: Full Code Discharge Diet: Regular Discharge Activity: Activity As Tolerated, Balance Activity w/Rest, Slowly Increase Activity Referrals: SOWMYA BUSTILLO MD [ACTIVE STAFF] - GABO MARTINEZ FNP-C [Primary Care Provider] - (Follow up within 1 week.) Prescriptions: Lactobacillus Acidophilus [Bacid 250 mg Tablet] 250 mg PO BID #60 tab Ciprofloxacin HCl [Cipro 500 mg Tablet] 500 mg PO Q12 #20 tablet Mesalamine [Pentasa 250 mg Capsule.sa] 1,000 mg PO TID #360 capsule. Home Medications: Levothyroxine Sodium [Unithroid] 150 mcg PO DAILY 09/23/16 Ascorbic Acid [Vitamin C 500 mg Tablet] 500 mg PO DAILY 04/22/20 Bifidobacterium Infantis [Align] 10.5 mg PO DAILY 04/22/20 Cholecalciferol (Vitamin D3) [Vitamin D3 1000 Unit Tablet] 1,000 unit PO DAILY 04/22/20 Cyanocobalamin (Vitamin B-12) [Vitamin B-12] 1,000 mcg PO DAILY 04/22/20 Multivitamin [Tab-A-Carla (Multiple Vitamin) Tablet] 1 tab PO DAILY 04/22/20 Acetaminophen [Tylenol 325 mg Tablet] 650 mg PO Q4HP PRN tablet 04/23/20 Ciprofloxacin HCl [Cipro 500 mg Tablet] 500 mg PO Q12 #20 tablet 04/23/20 Lactobacillus Acidophilus [Bacid 250 mg Tablet] 250 mg PO BID #60 tab 04/23/20 Mesalamine [Pentasa 250 mg Capsule.sa] 1,000 mg PO TID #360 capsule.sa 04/23/20 History of Present Illiness History of Present Illness: Per H&P by Dr. Ojeda: GREGORIA POPE is a 69 year old male with a past medical history of hypothyroidism, ulcerative colitis, status post total colectomy complicated by medication noncompliance and recurrence of pouchitis. Patient needs to at least 3 bowel movements of bright red blood. Unable to quantify. In the emergency department is found to have a mildly reduced hemoglobin is referred to the hospitalist for admission. Patient admits remote discontinuation of maintenance medication for ulcerative colitis. He denies additional medication use, heat or cold intolerance, nausea vomiting or diarrhea. He is concerned for a recent 20 pound weight loss. Hospital Course Hospital Course: Patient was admitted to the medical floor on continuous cardiac telemetry. Empirically placed on IV Cipro and metronidazole. We will start her on clear liquid diet and gastroenterology was consulted. He received 1 unit PRBC pre-procedure and then underwent pouchoscopy and ileoscopy by Dr. Bustillo the evening of 04/22/20 which revealed ulcerations but no active bleeding. He was placed on Pentessa and observed overnight. He had no further bowel movements, abdominal discomfort, or nausea. Serial CBCs were monitored; Hgb remained stable at 10. Patient's diet was advanced; tolerated well. Spoke with Dr. Bustillo prior to discharge; recommended continued Pentessa 1000mg TID and Cipro. Advised to discontinue Metronidazole. Recommended a regular diet, as tolerated, and follow up in his office. Patient is discharged to home, in stable condition. He is instructed to follow up with his PCP within [address] Bustillo as was instructed, take medications as advised, and to return to the emergency department immediately for any concerning symptoms. Physical Exam Vital Signs: Temp Pulse Resp BP Pulse Ox 99.4 F 84 16 98/52 L 100 04/23/20 15:04 04/23/20 15:04 04/23/20 15:04 04/23/20 15:04 04/23/20 15:04 Intake & Output 04/23/20 04/24/20 04/25/20 06:59 06:59 06:59 Intake Total 2400 1106 Output Total 1000 1025 Balance 1400 81 Weight 62.3 kg General appearance: PRESENT: no acute distress, well-developed, well-nourished Head exam: PRESENT: atraumatic, normocephalic Eye exam: PRESENT: conjunctiva pink, EOMI, PERRLA. ABSENT: scleral icterus Ear exam: PRESENT: normal external ear exam Mouth exam: PRESENT: moist, tongue midline Neck exam: ABSENT: carotid bruit, JVD, lymphadenopathy, thyromegaly Respiratory exam: PRESENT: clear to auscultation madhu. ABSENT: rales, rhonchi, wheezes Cardiovascular exam: PRESENT: RRR. ABSENT: diastolic murmur, rubs, systolic murmur Pulses: PRESENT: normal dorsalis pedis pul Vascular exam: PRESENT: normal capillary refill GI/Abdominal exam: PRESENT: normal bowel sounds, soft. ABSENT: distended, guar ding, mass, organolmegaly, rebound, tenderness Rectal exam: PRESENT: deferred Extremities exam: PRESENT: full ROM. ABSENT: calf tenderness, clubbing, pedal edema Neurological exam: PRESENT: alert, awake, oriented to person, oriented to place, oriented to time, oriented to situation, CN II-XII grossly intact. ABSENT: motor sensory deficit Psychiatric exam: PRESENT: appropriate affect, normal mood. ABSENT: homicidal ideation, suicidal ideation Skin exam: PRESENT: dry, intact, warm. ABSENT: cyanosis, rash Results Laboratory Results: WBC 3.5 10^3/uL (4.0-10.5) L 04/23/20 13:42 RBC 3.40 10^6/uL (4.35-5.55) L 04/23/20 13:42 Hgb 10.1 g/dL (13.5-17.0) L 04/23/20 13:42 Hct 29.4 % (37.9-51.0) L 04/23/20 13:42 MCV 87 fl (80-97) 04/23/20 13:42 MCH 29.6 pg (27.0-33.4) 04/23/20 13:42 MCHC 34.3 g/dL (32.0-36.0) 04/23/20 13:42 RDW 14.9 % (11.5-14.0) H 04/23/20 13:42 Plt Count 289 10^3/uL (150-450) 04/23/20 13:42 Lymph % (Auto) 34.3 % (13-45) 04/22/20 23:07 [place] % (Auto) 16.0 % (3-13) H 04/22/20 23:07 Eos % (Auto) 4.2 % (0-6) 04/22/20 23:07 Baso % (Auto) 0.5 % (0-2) 04/22/20 23:07 Reticulocyte # 0.061 10^6/uL (0.028-0.122) 04/22/20 07:02 Absolute Neuts (auto) 1.7 10^3/uL (1.7-8.2) 04/22/20 23:07 Absolute Lymphs (auto) 1.3 10^3/uL (0.5-4.7) 04/22/20 23:07 Absolute Monos (auto) 0.6 10^3/uL (0.1-1.4) 04/22/20 23:07 Absolute Eos (auto) 0.2 10^3/uL (0.0-0.6) 04/22/20 23:07 Absolute Basos (auto) 0.0 10^3/uL (0.0-0.2) 04/22/20 23:07 Seg Neutrophils % 45.0 % (42-78) 04/22/20 23:07 ESR 41 mm/hr (0-20) H 04/22/20 02:39 Retic Count (auto) 1.70 % (0.66-2.85) 04/22/20 07:02 PT 13.4 SEC (11.4-15.4) 04/22/20 02:39 INR 1.02 04/22/20 02:39 APTT 32.9 SEC (23.5-35.8) 04/22/20 02:39 Sodium 133.4 mmol/L (137-145) L 04/23/20 05:58 Potassium 4.1 mmol/L (3.6-5.0) 04/23/20 05:58 Chloride 101 mmol/L (98-107) 04/23/20 05:58 Carbon Dioxide 31 mmol/L (22-30) H 04/23/20 05:58 Anion Gap 1 (5-19) L 04/23/20 05:58 BUN 9 mg/dL (7-20) 04/23/20 05:58 Creatinine 0.87 mg/dL (0.52-1.25) 04/23/20 05:58 Est GFR ( Amer) > 60 (>60) 04/23/20 05:58 Est GFR (MDRD) Non-Af > 60 (>60) 04/23/20 05:58 Glucose 80 mg/dL (75-110) 04/23/20 05:58 Hemoglobin A1c % 5.3 % (4.7-6.0) 04/22/20 07:02 Calcium 8.5 mg/dL (8.4-10.2) 04/23/20 05:58 Iron 55.6 ug/dL (49-181) 04/22/20 02:29 TIBC 325 ug/dL (250-450) 04/22/20 02:29 % Saturation 17 % 04/22/20 02:29 Transferrin 238.80 mg/dL (206.00-381.00) 04/22/20 02:29 Ferritin 70.20 ng/mL (17.9-464.0) 04/22/20 02:29 Total Bilirubin 0.4 mg/dL (0.2-1.3) 04/22/20 02:39 Direct Bilirubin 0.0 mg/dL (0.0-0.4) 04/22/20 02:39 Neonat Total Bilirubin Not Reportable 04/22/20 02:39 Neonat Direct Bilirubin Not Reportable 04/22/20 02:39 Neonat Indirect Bili Not Reportable 04/22/20 02:39 AST 18 U/L (17-59) 04/22/20 02:39 ALT 12 U/L (<50) 04/22/20 02:39 Alkaline Phosphatase 65 U/L (38-126) 04/22/20 02:39 Total Protein 6.0 g/dL (6.3-8.2) L 04/22/20 02:39 Albumin 3.1 g/dL (3.5-5.0) L 04/22/20 02:39 Vitamin B12 712.0 pg/mL (239-931) 04/22/20 02:29 Folate > 20.00 ng/mL (>2.76) 04/22/20 02:29 TSH 20.10 uIU/mL (0.47-4.68) H 04/22/20 02:39 Urine Color YELLOW 04/22/20 08:15 Urine Appearance SLIGHTLY-CLOUDY 04/22/20 08:15 Urine pH 5.0 (5.0-9.0) 04/22/20 08:15 Ur Specific [place] 1.016 04/22/20 08:15 Urine Protein NEGATIVE mg/dL (NEGATIVE) 04/22/20 08:15 Urine Glucose (UA) NEGATIVE mg/dL (NEGATIVE) 04/22/20 08:15 Urine Ketones NEGATIVE mg/dL (NEGATIVE) 04/22/20 08:15 Urine Blood NEGATIVE (NEGATIVE) 04/22/20 08:15 Urine Nitrite NEGATIVE (NEGATIVE) 04/22/20 08:15 Urine Bilirubin NEGATIVE (NEGATIVE) 04/22/20 08:15 Urine Urobilinogen NEGATIVE mg/dL (<2.0) 04/22/20 08:15 Ur Leukocyte Esterase NEGATIVE (NEGATIVE) 04/22/20 08:15 Urine WBC (Auto) 2 /HPF 04/22/20 08:15 Urine RBC (Auto) 1 /HPF 04/22/20 08:15 U Hyaline Cast (Auto) 14 /LPF 04/22/20 08:15 Urine Mucus (Auto) MOD /LPF 04/22/20 08:15 Urine Ascorbic Acid 40 (NEGATIVE) H 04/22/20 08:15 Blood Type O POSITIVE 04/22/20 02:39 Antibody Screen NEGATIVE 04/22/20 02:39 Crossmatch See Detail 04/22/20 02:39 Plan Plan of Treatment: Patient is discharged home in stable condition. He is advised to follow-up with his primary care provider within 1 week. Follow-up with Dr. DOMINGUEZ as was instructed. Complete full course of Cipro. Eat a regular diet. Continue mesalamine and other medications as prescribed. Return to the emergency department as needed for concerning symptoms. Time Spent: Greater than 30 Minutes Stroke Is this a Stroke Patient?: No Acute Heart Failure - Is this a Heart Failure Patient?: No
== END 2020-04-23 15:55 | disposition home or self-care (01) | DRG 386 ==
LOC: ER 02:19 → EH 04:45 → 4S 07:47
PROVIDERS: ADMIT Internal Medicine; ATTEND Registered Nurse
PROC: 0DJD8ZZ Inspection of Lower Intestinal Tract, Via Natural or Artificial Opening Endoscopic (ICD-10-PCS; 2020-04-22)
PROC: 30233N1 Transfusion of Nonautologous Red Blood Cells into Peripheral Vein, Percutaneous Approach (ICD-10-PCS; 2020-04-22)
PROC: 0DBB4ZX Excision of Ileum, Percutaneous Endoscopic Approach, Diagnostic (ICD-10-PCS; principal; 2020-04-22 16:00)
DX: K51.911 Ulcerative colitis, unspecified with rectal bleeding (principal); K91.850 Pouchitis; D62 Acute posthemorrhagic anemia; R73.9 Hyperglycemia, unspecified; R63.4 Abnormal weight loss; E03.9 Hypothyroidism, unspecified; K21.9 Gastro-esophageal reflux disease without esophagitis; Y83.6 Removal of other organ (partial) (total) as the cause of abnormal reaction of the patient, or of later complication, without mention of misadventure at the time of the procedure; Z79.899 Other long term (current) drug therapy; Z79.890 Hormone replacement therapy; Z91.14 Patient's other noncompliance with medication regimen; Z90.49 Acquired absence of other specified parts of digestive tract
CPT/HCPCS: 36415; 36430; 45331; 80048; 80053; 81001; 82607; 82728; 82746; 83036; 83540; 83550; 84443; 84466; 85025; 85027; 85045; 85610; 85652; 85730; 86850; 86900; 86901; 86920; 87040; 88305; 93005; 93010; 96361; 96374; 99284; J0171; J0744; J1644; J2405; J3490; J7040; P9016